=== PATIENT | female | born 1985 | race Two or more races ===

== ENCOUNTER 2019-06-26 13:23 | Emergency (ER) | payer MEDICAID ==
[~2019-06-26] VITALS: Ht 157.5 cm; Wt 74.8 kg
[2019-06-26 14:03] LABS: BASOPHILS # (AUTO) 0.05 x10^3/uL (0-0.1); BASOPHILS % (AUTO) 0 % (0-1); EOSINOPHILS % (AUTO) 2 % (1-7); LYMPHOCYTES # (AUTO) 2.58 x10^3/uL (1-3.4); LYMPHOCYTES % (AUTO) 21 % (22-44); MD NO; MEAN CORPUSCULAR HEMOGLOBIN 27.5 pg (27.0-34.8); MEAN CORPUSCULAR HGB CONC 32.2 g/dL (32.4-35.8); MEAN CORPUSCULAR VOLUME 85.2 fL (80-100); MEAN PLATELET VOLUME 7.6 fL (7.4-10.4); MONOCYTES # (AUTO) 0.67 x10^3/uL (0.2-0.8); MONOCYTES % (AUTO) 5 % (2-9); NEUTROPHILS # (AUTO) 8.89 x10^3/uL (1.8-6.8); NEUTROPHILS % (AUTO) 72 % (42-75); PLATELET COUNT 399 x10^3/uL (130-400); RED BLOOD COUNT 5.01 x10^6/uL (3.82-5.3); RED CELL DISTRIBUTION WIDTH 13.5 % (9.6-15.2)
[2019-06-26 14:07] LABS: ALANINE AMINOTRANSFERASE 17 U/L (12-78); ALBUMIN 3.1 g/dL (3.4-5.0); ANION GAP 8 mmol/L (5-15); CALCIUM 8.1 mg/dL (8.5-10.1); CHLORIDE 110 mmol/L (98-107)
[2019-06-26 14:10] LABS: ALKALINE PHOSPHATASE 55 U/L (45-117); BILIRUBIN,TOTAL 0.2 mg/dL (0.2-1.0); CREATININE 1.08 mg/dL (0.55-1.02); TOTAL PROTEIN 6.6 g/dL (6.4-8.2)
--- NOTE | 2019-06-26 14:26 | NUR ---
TO ROOM FROM LOBBY. NAD.
--- NOTE | 2019-06-26 14:29 | NUR ---
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 VSS. CALL LIGHT W/I REACH
--- NOTE | 2019-06-26 14:47 | NUR ---
ASSUMED CARE OF PT AT THIS TIME. DR. MCRAE AT BEDSIDE FOR EVALUATION. 34 Y/O A&OX4 F PRESENTS STATING "FEELING CHEST PRESSURE OR TIGHTNESS SINCE LAST NIGHT WHILE I WAS COOKING, STARTED AT ABOUT 6 PM, ALSO DIZZY FOR LAST 4-5 DAYS WITH NAUSEA ON AND OFF, TODAY I HAD A COUGH THIS MORNING AND FEELING SOB, HARD TO TAKE A DEEP, I HAVE ASTHMA, OUT OF MY INHALER, SO I USED A FRIENDS INHALER AT WORK AND THAT SEEMED TO HELP. ALSO 1 WEEK AGO FOR FEW NIGHTS IN A ROW BOTH MY ARMS WERE GOING NUMB BUT THEY HAVE BEEN FINE FOR A WEEK." CONT PULSE OX, BP, CARDIAC MONITORS IN PLACE. VSS. SR ON MONITOR. ASSESSMENT COMPLETED. CALL LIGHT IN REACH. FALL PRECAUTIONS IN PLACE. SIDE RAILS UPX2.
[2019-06-26] MEDS ORDERED: ALBU8.5H8 INH (15:01)
[2019-06-26] MEDS ORDERED: LEVO50TA5 PO (15:01)
[2019-06-26] MEDS ORDERED: IBUP-1223 PO (15:01)
--- NOTE | 2019-06-26 15:07 | NUR ---
PT MEDICATED NOTED PER MD ORDER. RESTING COMFORTABLY. VSS. SR ON MONITOR. DENIES NEED TO USE RESTROOM. CALL LIGHT IN REACH. FALL PRECUATIONS IN PLACE.
--- NOTE | 2019-06-26 15:46 | NUR ---
PT AMBULATORY TO RESTROOM WITH STEADY GAIT. REPORTS "CHEST PRESSURE AND SHORT OF BREATH FEELING IS THE SAME, DO YOU THINK THIS COULD BE A PANIC ATTACK? THAT'S WHAT THE AMBULANCE MAN SAID, I DON'T KNOW IF IT'S THAT." DISCUSSED PT SYMPTOMS WITH DR. MCRAE S/P MEDICATION, AWARE OF PAIN, TO RECHECK PT. CALL LIGHT IN REACH. FALL PRECUATIONS IN PLACE. SR ON MONITOR. VSS.
--- NOTE | 2019-06-26 15:55 | NUR ---
DR. MCRAE AT BEDSIDE DISCUSSING POC, CP, SOB WITH PT
--- NOTE | 2019-06-26 16:15 | NUR ---
PER DR. MCRAE PT TO BE DISCHARGED, AWAITING CHART AND DISCHARGE PAPERS FROM [facility]. PT REPORTS "CHEST PRESSURE A LITTLE BETTER MAYBE 5-6/10 BUT STILL FEELS HARD TO GET A GOOD DEEP BREATH." AWARE OF PT SYMPTOMS AFTER DISCUSSION WITH MD AND PT. VSS. SR ON MONITOR. CALL LIGHT IN REACH. FALL PRECUATIONS IN PLACE.
[2019-06-26 17:08] VITALS: BP 115/77
--- NOTE | 2019-06-26 17:09 | NUR ---
Patient\ given discharge instructions and Rx, they have confirmed that they understand the instructions. Patient ambulatory with steady gait.
== END 2019-06-26 17:09 | disposition home or self-care (01) ==
LOC: ED 16:15
DX: R07.89 Other chest pain (principal); F41.1 Generalized anxiety disorder; R06.4 Hyperventilation; R20.2 Paresthesia of skin; R00.0 Tachycardia, unspecified; J45.909 Unspecified asthma, uncomplicated
CPT/HCPCS: 36415; 71046; 80053; 85025; 93005; 99285; Q0177

== ENCOUNTER 2021-01-05 03:47 | Emergency (ER) | payer MEDICAID ==
[~2021-01-05] VITALS: Ht 157.5 cm; Wt 74.9 kg
[~2021-01-05 03:47] MED LIST: ALBU8.5H8 INH; IBUP-1223 PO; LEVO50TA5 PO
--- NOTE | 2021-01-05 03:53 | NUR ---
EKG DONE IN TRIAGE.
[2021-01-05 04:02] VITALS: BP 129/77
--- NOTE | 2021-01-05 04:02 | NUR ---
PT C/O OF SORE THROAT, COUGH, ITCHY AND HOT EARS. PT REPORTS SOB, AND CP FROM COUGHING. EKG DONE IN TRAIGE DENIES FEVER/CHILLS, N/V/D. ATTACHED TO MONITORS, VS. NADN. BF AT BEDSIDE, BED IN LOW, RAILS ENGAGED, CALL LIGHT ON LAP.
--- NOTE | 2021-01-05 05:54 | NUR ---
Task RN: discharge instructions given. All questions and concerns addressed. Patient ambulatory with a steady gait. Belongings with patient.
== END 2021-01-05 05:56 | disposition home or self-care (01) ==
LOC: ED 04:16
DX: J45.31 Mild persistent asthma with (acute) exacerbation (principal); Z20.822 Contact with and (suspected) exposure to COVID-19; B34.9 Viral infection, unspecified
CPT/HCPCS: 93005; 99284; U0003; U0005